=== PATIENT | male | born 1930 | race Caucasian/White ===

== ENCOUNTER 2016-12-11 04:25 | Emergency (ER) | payer MEDICARE, MEDICAID ==
[~2016-12-11] VITALS: Ht 170.2 cm; Wt 60.2 kg
[~2016-12-11 04:25] MED LIST: AMOX1TAB64 PO; CEFD300C2 PO; FINA5TAB4 PO; LINE600T37 PO; TAMS-11 PO
[2016-12-11 04:27] VITALS: BP 115/68
== END 2016-12-11 05:43 | disposition home or self-care (01) ==
LOC: ED 04:40
DX: Z46.6 Encounter for fitting and adjustment of urinary device (principal)
CPT/HCPCS: 99284

== ENCOUNTER 2017-01-02 20:31 | Emergency (ER) | payer MEDICARE, MEDICAID ==
[~2017-01-02] VITALS: Ht 170.2 cm; Wt 60.6 kg
[~2017-01-02 20:31] MED LIST changes: -CEFD300C2 PO; +CEFD300C37 PO
[2017-01-02] MEDS ORDERED: CEFTRIAXONE 1,000 MG ONE (22:46)
[2017-01-02 22:55] VITALS: BP 102/55
[2017-01-02] MEDS ORDERED: CEFTRIAXONE 1,000 MG IM ONE (23:00)
== END 2017-01-02 23:39 | disposition home or self-care (01) ==
LOC: ED 22:42
DX: N30.00 Acute cystitis without hematuria (principal); Z44.8 Encounter for fitting and adjustment of other external prosthetic devices
CPT/HCPCS: 51702; 96372; 99284; J0696

== ENCOUNTER 2017-01-04 02:11 | Emergency (ER) | payer MEDICARE, MEDICAID ==
[~2017-01-04] VITALS: Ht 170.2 cm; Wt 61.3 kg
[2017-01-04] MEDS ORDERED: CEFTRIAXONE PMX 1GM/50ML 50 ML ONE (04:14)
[2017-01-04] MEDS ORDERED: SODIUM CHLORIDE FLUSH 10ML SYR IVF ONE (04:30)
[2017-01-04] MEDS ORDERED: CEFTRIAXONE PMX 1GM/50ML 50 ML IVPB ONE (04:30)
[2017-01-04 05:04] VITALS: BP 131/74
== END 2017-01-04 05:06 | disposition home or self-care (01) ==
LOC: ED 03:26
DX: N30.01 Acute cystitis with hematuria (principal)
CPT/HCPCS: 51702; 81001; 87077; 87086; 96365; 99284; J0696; 87186

== ENCOUNTER 2017-01-16 21:12 | Emergency (ER) | payer MEDICARE, MEDICAID ==
[~2017-01-16] VITALS: Ht 170.2 cm; Wt 61.2 kg
[2017-01-16 23:07] VITALS: BP 100/59
== END 2017-01-16 23:30 | disposition home or self-care (01) ==
LOC: ED 22:50
DX: N30.01 Acute cystitis with hematuria (principal); N40.0 Benign prostatic hyperplasia without lower urinary tract symptoms
CPT/HCPCS: 81001; 87077; 87086; 87186; 99284

== ENCOUNTER 2017-01-22 15:29 | Emergency (ER) | payer MEDICARE, MEDICAID ==
[~2017-01-22] VITALS: Ht 170.2 cm; Wt 59.8 kg
[2017-01-22 15:31] VITALS: BP 112/67
== END 2017-01-22 17:33 | disposition home or self-care (01) ==
LOC: ED 16:29
DX: T83.028A Displacement of other urinary catheter, initial encounter (principal)
CPT/HCPCS: 51702

== ENCOUNTER 2017-02-16 19:56 | Emergency (ER) | payer MEDICARE, MEDICAID ==
[~2017-02-16] VITALS: Ht 170.2 cm; Wt 60.7 kg
[2017-02-16 20:38] LABS: BLOOD UREA NITROGEN 19 mg/dL (7-18)
[2017-02-16 23:39] VITALS: BP 129/89
== END 2017-02-16 23:42 | disposition home or self-care (01) ==
LOC: ED 21:35
DX: T83.098A Other mechanical complication of other urinary catheter, initial encounter (principal); N30.01 Acute cystitis with hematuria
CPT/HCPCS: 36415; 51702; 80048; 81001; 82040; 85025; 87077; 87086; 87186; 99284

== ENCOUNTER 2017-03-19 14:06 | Emergency (ER) | payer MEDICARE, MEDICAID ==
[~2017-03-19] VITALS: Ht 170.2 cm; Wt 61.7 kg
[2017-03-19 14:08] VITALS: BP 104/59
== END 2017-03-19 16:50 | disposition home or self-care (01) ==
LOC: ED 15:58
DX: Z46.82 Encounter for fitting and adjustment of non-vascular catheter (principal); R33.9 Retention of urine, unspecified
CPT/HCPCS: 51702; 99284

== ENCOUNTER 2017-04-26 17:11 | Emergency (ER) | payer MEDICARE, MEDICAID ==
[~2017-04-26] VITALS: Ht 165.1 cm; Wt 61.6 kg
[2017-04-26 17:12] VITALS: BP 121/69
== END 2017-04-26 19:07 | disposition home or self-care (01) ==
LOC: ED 19:01
DX: N30.90 Cystitis, unspecified without hematuria (principal); F41.9 Anxiety disorder, unspecified; Z46.6 Encounter for fitting and adjustment of urinary device
CPT/HCPCS: 81001; 87077; 87086; 87186; 99284

== ENCOUNTER 2017-05-15 11:39 | Emergency (ER) | payer MEDICARE, MEDICAID ==
[~2017-05-15] VITALS: Ht 170.2 cm; Wt 61.1 kg
[2017-05-15 15:26] VITALS: BP 133/70
== END 2017-05-15 15:49 | disposition home or self-care (01) ==
LOC: ED 15:46
DX: T83.098A Other mechanical complication of other urinary catheter, initial encounter (principal); Z98.890 Other specified postprocedural states
CPT/HCPCS: 51702

== ENCOUNTER 2017-09-18 14:02 | Emergency (ER) | payer MEDICARE, MEDICAID ==
[~2017-09-18] VITALS: Ht 167.6 cm; Wt 59.0 kg
[2017-09-18 16:04] LABS: CULTURE INDICATED? YES; MICROSCOPIC INDICATED
[2017-09-18 16:30] VITALS: BP 110/53
== END 2017-09-18 16:59 | disposition home or self-care (01) ==
LOC: ED 16:18
DX: T83.091A Other mechanical complication of indwelling urethral catheter, initial encounter (principal); N30.90 Cystitis, unspecified without hematuria; R33.8 Other retention of urine; N40.1 Benign prostatic hyperplasia with lower urinary tract symptoms; X58.XXXA Exposure to other specified factors, initial encounter; Y93.89 Activity, other specified; Y92.89 Other specified places as the place of occurrence of the external cause; Y99.8 Other external cause status
CPT/HCPCS: 51702; 81001; 87077; 87086; 87186; 99284

== ENCOUNTER 2017-10-15 00:35 | Emergency (ER) | payer MEDICARE, MEDICAID ==
[~2017-10-15] VITALS: Ht 165.1 cm; Wt 59.0 kg
[2017-10-15 00:37] VITALS: BP 116/68
== END 2017-10-15 02:40 ==
LOC: ED 01:20
DX: Z46.6 Encounter for fitting and adjustment of urinary device (principal)
CPT/HCPCS: 51702; 99284

== ENCOUNTER 2017-10-30 02:34 | Emergency (ER) | payer MEDICARE, MEDICAID ==
[~2017-10-30] VITALS: Ht 170.2 cm; Wt 59.3 kg
[2017-10-30 02:37] VITALS: BP 123/80
[2017-10-30] MEDS ORDERED: NALOXONE 0.4 MG/ML, 1ML ONE (04:21)
== END 2017-10-30 04:33 | disposition home or self-care (01) ==
LOC: ED 03:55
DX: N40.1 Benign prostatic hyperplasia with lower urinary tract symptoms (principal); R33.9 Retention of urine, unspecified
CPT/HCPCS: 51702; 99284

== ENCOUNTER 2017-12-04 19:13 | Emergency (ER) | payer MEDICARE, MEDICAID ==
[~2017-12-04] VITALS: Ht 170.2 cm; Wt 58.3 kg
[2017-12-04 19:24] VITALS: BP 121/70
[2017-12-04 21:03] LABS: MICROSCOPIC AUTO
[2017-12-04 21:04] LABS: CULTURE INDICATED? YES
== END 2017-12-04 21:34 | disposition home or self-care (01) ==
LOC: ED 21:28
DX: N30.01 Acute cystitis with hematuria (principal); R33.9 Retention of urine, unspecified; N40.0 Benign prostatic hyperplasia without lower urinary tract symptoms
CPT/HCPCS: 51702; 81001; 87077; 87086; 87186; 99284

== ENCOUNTER 2017-12-05 05:49 | Emergency (ER) | payer MEDICARE, MEDICAID ==
[~2017-12-05] VITALS: Ht 170.2 cm; Wt 58.7 kg
[2017-12-05 07:27] VITALS: BP 113/66
== END 2017-12-05 07:53 | disposition home or self-care (01) ==
LOC: ED 07:52
DX: R33.9 Retention of urine, unspecified (principal); R10.30 Lower abdominal pain, unspecified
CPT/HCPCS: 51702; 99284

== ENCOUNTER 2017-12-24 15:24 | Emergency (ER) | payer MEDICARE, MEDICAID ==
[~2017-12-24] VITALS: Ht 170.2 cm; Wt 57.7 kg
[2017-12-24 15:27] VITALS: BP 117/67
== END 2017-12-24 16:28 | disposition home or self-care (01) ==
LOC: ED 16:21
DX: T83.011A Breakdown (mechanical) of indwelling urethral catheter, initial encounter (principal); N40.1 Benign prostatic hyperplasia with lower urinary tract symptoms; F41.9 Anxiety disorder, unspecified
CPT/HCPCS: 51702; 99284

== ENCOUNTER 2018-01-09 11:29 | Emergency (ER) | payer MEDICARE, MEDICAID ==
[~2018-01-09] VITALS: Ht 170.2 cm; Wt 56.2 kg
[2018-01-09 13:11] LABS: BASOPHILS # (AUTO) 0.07 x10^3/uL (0-0.1); BASOPHILS % (AUTO) 1 % (0-1); EOSINOPHILS # (AUTO) 0.22 x10^3/uL (0-0.4); EOSINOPHILS % (AUTO) 3 % (1-7); LYMPHOCYTES # (AUTO) 1.23 x10^3/uL (1-3.4); LYMPHOCYTES % (AUTO) 16 % (22-44); MD NO; MEAN CORPUSCULAR HGB CONC 33.5 g/dL (33.2-36.2); MEAN CORPUSCULAR VOLUME 89.6 fL (81-97); MEAN PLATELET VOLUME 6.7 fL (7.4-10.4); MONOCYTES # (AUTO) 0.46 x10^3/uL (0.2-0.8); MONOCYTES % (AUTO) 6 % (2-9); NEUTROPHILS # (AUTO) 5.68 x10^3/uL (1.8-6.8); NEUTROPHILS % (AUTO) 74 % (42-75); PLATELET COUNT 330 x10^3/uL (130-400); RED BLOOD COUNT 4.67 x10^6/uL (4.38-5.82); RED CELL DISTRIBUTION WIDTH 15.3 % (9.4-14.8)
[2018-01-09 13:23] LABS: ALANINE AMINOTRANSFERASE 14 U/L (12-78); ALBUMIN 3.2 g/dL (3.4-5.0); ANION GAP 7 mmol/L (5-15); CALCIUM 8.6 mg/dL (8.5-10.1); CHLORIDE 105 mmol/L (98-107); CREATININE 0.93 mg/dL (0.7-1.3)
[2018-01-09 13:25] LABS: ALKALINE PHOSPHATASE 67 U/L (45-117); BILIRUBIN,TOTAL 0.5 mg/dL (0.2-1.0); TOTAL PROTEIN 6.9 g/dL (6.4-8.2)
[2018-01-09 15:25] LABS: CULTURE INDICATED? YES; MICROSCOPIC INDICATED
[2018-01-09] MEDS ORDERED: CEFTRIAXONE 1,000 MG ONE (16:56)
[2018-01-09] MEDS ORDERED: CEFTRIAXONE 1,000 MG IM ONE (17:00)
[2018-01-09 17:38] VITALS: BP 135/76
== END 2018-01-09 17:44 | disposition home or self-care (01) ==
LOC: MERGE 11:29 → ED 15:30
DX: N30.91 Cystitis, unspecified with hematuria (principal); K59.00 Constipation, unspecified; I10 Essential (primary) hypertension; N40.0 Benign prostatic hyperplasia without lower urinary tract symptoms
CPT/HCPCS: 36415; 51702; 74022; 80053; 81001; 85025; 87086; 96372; 99285; J0696

== ENCOUNTER 2018-01-30 16:43 | Emergency (ER) | payer MEDICARE, MEDICAID ==
[~2018-01-30] VITALS: Ht 170.2 cm; Wt 54.0 kg
[2018-01-30 16:55] VITALS: BP 107/74
[2018-01-30 18:20] LABS: CULTURE INDICATED? YES; MICROSCOPIC INDICATED
[2018-01-30 19:04] LABS: BASOPHILS # (AUTO) 0.03 x10^3/uL (0-0.1); BASOPHILS % (AUTO) 0 % (0-1); EOSINOPHILS # (AUTO) 0.29 x10^3/uL (0-0.4); EOSINOPHILS % (AUTO) 4 % (1-7); LYMPHOCYTES # (AUTO) 1.24 x10^3/uL (1-3.4); LYMPHOCYTES % (AUTO) 19 % (22-44); MD NO; MEAN CORPUSCULAR HEMOGLOBIN 30.4 pg (27.5-34.5); MEAN CORPUSCULAR HGB CONC 33.5 g/dL (33.2-36.2); MEAN PLATELET VOLUME 6.5 fL (7.4-10.4); MONOCYTES # (AUTO) 0.48 x10^3/uL (0.2-0.8); MONOCYTES % (AUTO) 7 % (2-9); NEUTROPHILS # (AUTO) 4.59 x10^3/uL (1.8-6.8); NEUTROPHILS % (AUTO) 69 % (42-75); PLATELET COUNT 259 x10^3/uL (130-400); RED CELL DISTRIBUTION WIDTH 15.1 % (9.4-14.8)
[2018-01-30 19:14] LABS: ANION GAP 6 mmol/L (5-15); CALCIUM 8.6 mg/dL (8.5-10.1); CHLORIDE 109 mmol/L (98-107); CREATININE 0.88 mg/dL (0.7-1.3)
== END 2018-01-30 19:57 | disposition home or self-care (01) ==
LOC: ED 18:53
DX: R33.8 Other retention of urine (principal); N40.1 Benign prostatic hyperplasia with lower urinary tract symptoms; I10 Essential (primary) hypertension
CPT/HCPCS: 36415; 51702; 80048; 81001; 82040; 85025; 87077; 87086; 99284

== ENCOUNTER 2018-02-23 08:46 | Emergency (ER) | payer MEDICARE, MEDICAID ==
[~2018-02-23] VITALS: Ht 170.2 cm; Wt 57.1 kg
[2018-02-23 08:48] VITALS: BP 115/67
[2018-02-23 10:24] LABS: CULTURE INDICATED? YES; MICROSCOPIC INDICATED
== END 2018-02-23 12:10 | disposition home or self-care (01) ==
LOC: ED 11:13
DX: T83.091A Other mechanical complication of indwelling urethral catheter, initial encounter (principal); N30.90 Cystitis, unspecified without hematuria; N39.0 Urinary tract infection, site not specified; I10 Essential (primary) hypertension; F41.9 Anxiety disorder, unspecified
CPT/HCPCS: 51702; 81001; 87086; 99284

== ENCOUNTER 2018-03-04 20:24 | Emergency (ER) | payer MEDICARE, MEDICAID ==
[~2018-03-04] VITALS: Ht 170.2 cm; Wt 56.0 kg
[2018-03-04 22:13] VITALS: BP 105/63
== END 2018-03-04 22:15 | disposition home or self-care (01) ==
LOC: ED 21:14
DX: N48.89 Other specified disorders of penis (principal); R30.0 Dysuria
CPT/HCPCS: 99281

== ENCOUNTER 2018-03-16 12:59 | Emergency (ER) | payer MEDICARE, MEDICAID ==
[~2018-03-16] VITALS: Ht 170.2 cm; Wt 56.2 kg
[2018-03-16 13:07] VITALS: BP 112/63
[2018-03-16 15:11] LABS: CULTURE INDICATED? YES; MICROSCOPIC INDICATED
[2018-03-16] MEDS ORDERED: CEFTRIAXONE 1,000 MG IM ONE (15:30)
[2018-03-16] MEDS ORDERED: CEFTRIAXONE 1,000 MG ONE (15:52)
== END 2018-03-16 16:10 | disposition home or self-care (01) ==
LOC: ED 15:02
DX: T83.511A Infection and inflammatory reaction due to indwelling urethral catheter, initial encounter (principal); N39.0 Urinary tract infection, site not specified; I10 Essential (primary) hypertension; F41.1 Generalized anxiety disorder
CPT/HCPCS: 81001; 87077; 87086; 87186; 96372; 99284; J0696

== ENCOUNTER 2018-03-28 12:39 | Emergency (ER) | payer MEDICARE, MEDICAID ==
[~2018-03-28] VITALS: Ht 170.2 cm; Wt 56.0 kg
[2018-03-28 12:55] VITALS: BP 104/65
[2018-03-28 15:13] LABS: MICROSCOPIC INDICATED
[2018-03-28 15:16] LABS: CULTURE INDICATED? YES
== END 2018-03-28 16:48 | disposition home or self-care (01) ==
LOC: ED 16:00
DX: N30.00 Acute cystitis without hematuria (principal); I10 Essential (primary) hypertension; F41.1 Generalized anxiety disorder
CPT/HCPCS: 81001; 87077; 87086; 99284

== ENCOUNTER 2018-04-07 11:43 | Emergency (ER) | payer MEDICARE, MEDICAID ==
[~2018-04-07] VITALS: Ht 170.2 cm; Wt 56.5 kg
[2018-04-07 13:40] VITALS: BP 114/67
== END 2018-04-07 13:44 | disposition home or self-care (01) ==
LOC: ED 13:19
DX: T83.098D Other mechanical complication of other urinary catheter, subsequent encounter (principal)
CPT/HCPCS: 99284

== ENCOUNTER 2018-04-21 13:27 | Emergency (ER) | payer MEDICARE, MEDICAID ==
[~2018-04-21] VITALS: Ht 170.2 cm; Wt 57.0 kg
[2018-04-21 13:45] VITALS: BP 116/72
== END 2018-04-21 15:13 | disposition home or self-care (01) ==
LOC: ED 15:00
DX: T83.038A Leakage of other urinary catheter, initial encounter (principal); Y83.8 Other surgical procedures as the cause of abnormal reaction of the patient, or of later complication, without mention of misadventure at the time of the procedure; Y92.89 Other specified places as the place of occurrence of the external cause
CPT/HCPCS: 51702; 99284

== ENCOUNTER 2018-06-02 09:16 | Emergency (ER) | payer MEDICARE, MEDICAID ==
[~2018-06-02] VITALS: Ht 170.2 cm; Wt 56.2 kg
[2018-06-02 09:20] VITALS: BP 114/65
[2018-06-02 10:10] LABS: CULTURE INDICATED? YES; MICROSCOPIC INDICATED
== END 2018-06-02 10:05 | disposition home or self-care (01) ==
LOC: ED 09:40
DX: N39.0 Urinary tract infection, site not specified (principal); I10 Essential (primary) hypertension; Z87.891 Personal history of nicotine dependence
CPT/HCPCS: 81001; 87086; 99284

== ENCOUNTER 2018-06-21 09:00 | Emergency (ER) | payer MEDICARE, MEDICAID ==
[~2018-06-21] VITALS: Ht 170.2 cm; Wt 56.8 kg
[2018-06-21 10:37] VITALS: BP 114/58
== END 2018-06-21 10:43 | disposition home or self-care (01) ==
LOC: ED 10:04
DX: R33.8 Other retention of urine (principal); N40.0 Benign prostatic hyperplasia without lower urinary tract symptoms; R10.30 Lower abdominal pain, unspecified; I10 Essential (primary) hypertension
CPT/HCPCS: 51702; 99284

== ENCOUNTER 2018-07-10 08:57 | Emergency (ER) | payer MEDICARE, MEDICAID ==
[~2018-07-10] VITALS: Ht 162.6 cm; Wt 58.2 kg
[2018-07-10 11:46] VITALS: BP 124/57
== END 2018-07-10 11:49 | disposition home or self-care (01) ==
LOC: ED 09:20
DX: T83.091A Other mechanical complication of indwelling urethral catheter, initial encounter (principal); I10 Essential (primary) hypertension
CPT/HCPCS: 99284